=== PATIENT | female | born 1985 | race Caucasian/White ===

== ENCOUNTER → 2016-04-01 | Outpatient (CLI) | payer BC ==
[~2016-04-01] MED LIST: ALPR2TAB PO; AMOX1TAB43 PO; BUPR2MIS SL; CGN1 PO; CHOL20007 PO; FLUO20CA35 PO; HALDOL PO; HALO0.5T9 PO; KLN1 PO; LEVE500T13 PO; LYR100 PO; NALT50TA5 PO; PREG200C PO; PROM25TA9 PO; QUET1TAB10 PO; VITAMIN B SL; VITAMIN D PO
--- NOTE | 2016-04-01 14:13 | DIAGNOSTIC IMAGING REPORT ---
PA CHEST RADIOGRAPH AND UPRIGHT AND SUPINE AP RADIOGRAPHS OF THE ABDOMEN CLINICAL HISTORY: Constipation and diarrhea. COMPARISON STUDY: Chest CT January 27, 2014 and [facility] November 15, 2015. FINDINGS: Lung volumes are normal. Lungs are clear. There is no pneumothorax or pleural effusion. Cardiac size is normal. Mediastinal contours are normal. There is no free air. A left acetabular internal fixation is noted. A left pelvic calcification represents a phlebolith. The amount of stool within the colon is within normal limits. IMPRESSION: 1. No free air or evidence of bowel obstruction. 2. Unremarkable amount of stool within the colon and rectum. 3. No acute cardiopulmonary findings. Electronically signed by: Antwon Goodman M.D. 04/01/2016 2:12 PM Dictated Date/Time: 04/01/2016 2:11 PM
== END | disposition home or self-care (01) ==
LOC: C.RAD1850 13:39
PROVIDERS: ATTEND Internal Medicine
DX: K59.00 Constipation, unspecified (principal)

== ENCOUNTER → 2016-04-03 | Outpatient (CLI) | payer BC | END | disposition home or self-care (01) | LOC: C.LAB1850 13:45 | PROVIDERS: ATTEND Internal Medicine | DX: K59.00 Constipation, unspecified (principal) ==

== ENCOUNTER → 2016-04-22 | Day surgery (SDC) | payer BC ==
[2016-04-10 14:38] VITALS: Ht 160 cm; Wt 55.0 kg
[~2016-04-22] VITALS: Ht 160 cm; Wt 55.0 kg
[~2016-04-22] MED LIST changes: -BUPR2MIS SL; +FENTANYL CITRATE INJ 50 MCG/1 ML 2 ML VIAL ONE; -LEVE500T13 PO; +LIDOCAINE HCL 2% 2 ML VIAL (20MG/ML) ONE; +PROPOFOL IV EMULSION 10 MG/ML 20 ML VIAL IV ONE; +SODIUM CHLORIDE 0.9% 500ML 500 ML IV ONE
--- NOTE | 2016-04-22 15:05 | Endo History and Physical ---
History & Physical Date of Service: Apr 22, 2016. Chief Complaint: diarrhea Referring Physician: none History of Present Illness 30 yo CF who presents for colonoscopy secondary to diarrhea. Past Medical History Seizure Disorder Past Surgical History Hx Cardiac Surgery: No Hx Internal Defibrillator: No Hx Pacemaker: No Hx Abdominal Surgery: No Hx of Implantable Prosthesis: No Hx Post-Op Nausea and Vomiting: No Hx Cancer Surgery: No Hx Thoracic Surgery: No Hx Orthopedic: Yes (LEFT LEG/HIP SX (HARDWARE), LEFT ELBOW REPAIR (HARDWARE)) Hx Urinary Tract Surgery: No Family History Polyp Social History Smoking Status: Former Smoker Hx Substance Use: No Hx Alcohol Use: No Allergies Coded Allergies: No Known Allergies (Unverified , 04/10/16) Current Medications Reported Home Medications Medications Dose Route/Sig Max Daily Dose Days Date Category [Vitamin B] 1 Dose SL QAM 04/10/16 Reported [Vitamin D] 1 Tab PO QAM 04/10/16 Reported Xanax Xr (Alprazolam) 2 Mg Tab 1 Tab PO BID 04/10/16 Reported Prozac (Fluoxetine HCl) 20 Mg Cap 20 Mg PO BID 04/10/16 Reported Lyrica (Pregabalin) 200 Mg Cap 200 Mg PO TID 04/10/16 Reported Vital Signs Weight (Kilograms): 55 Height (Feet): 5 Height (Inches): 3 Date Time Temp Pulse Resp B/P Pulse Ox O2 Delivery O2 Flow Rate FiO2 04/22/16 14:52 36.6 57 20 115/71 98 Room Air Physical Exam General Appearance: WD/WN, no apparent distress Respiratory/Chest: Auscultation: breath sounds normal Cardiovascular: Heart Auscultation: RRR Abdomen: Bowel Sounds: normal Inspection & Palpation: soft, non-distended, no tenderness, guarding & rebound Assessment and Plan Assessment: 30 yo CF who presents for colonoscopy secondary to diarrhea. Plan: Proceed with colonoscopy.
--- NOTE | 2016-04-22 15:31 | Discharge Instructions ---
Endoscopy Patient Instructions Date / Procedure(s) Performed Apr 22, 2016. Colonoscopy Allergy Information Coded Allergies: No Known Allergies (Unverified , 04/10/16) Discharge Date / Findings Apr 22, 2016. Random colon biopsies Stool aspirate collected Internal hemorrhoids Medication Instructions OK to resume all medications today as prescribed. Reported Home Medications Medications Dose Route/Sig Max Daily Dose Days Date Category [Vitamin B] 1 Dose SL QAM 04/10/16 Reported [Vitamin D] 1 Tab PO QAM 04/10/16 Reported Xanax Xr (Alprazolam) 2 Mg Tab 1 Tab PO BID 04/10/16 Reported Prozac (Fluoxetine HCl) 20 Mg Cap 20 Mg PO BID 04/10/16 Reported Lyrica (Pregabalin) 200 Mg Cap 200 Mg PO TID 04/10/16 Reported Provider Instructions Activity Restrictions - No exercising or heavy lifting for 24 hours. - Do not drink alcohol the day of the procedure. - Do not drive a car or operate machinery until the day after the procedure. - Do not make any important decisions or sign important papers in 24 hours after the procedure. Following Day: - Return to full activity which may include returning to work/school. Diet Start your diet with liquids and light foods (jello, soup, juice, toast). Then eat your usual diet if not nauseated. Treatment For Common After Affects For mild abdominal pain, bloating, or excessive gas: - Rest - Eat lightly - Lie on right side Follow-Up Information Follow-up with none as scheduled Anesthesia Information What You Should Know You have had a procedure that required some medicine to reduce anxiety and discomfort. This treatment is called moderate sedation. After receiving the treatment, you may be sleepy, but you will be able to breathe on your own. The effects of the treatment may last for several hours. Follow these instructions along with Activity/Diet recommendations noted above: * Do NOT do anything where dizziness or clumsiness would be dangerous. * Rest quietly at home today, then you can be up and about tomorrow. * Have a responsible person stay with you the rest of today. * You may have had an I.V. today. If so, you may take the dressing off later today. Recommendations Call your doctor if: * Trouble breathing * Continuous vomiting for more than 24 hours * Temperature above 101 degrees * Severe abdominal pain or bloating * Pain not relieved by pain medicine ordered * There is increased drainage or redness from any incision * A large amount of rectal bleeding greater than 2-3 tablespoons. (If you had a polyp/s removed or have hemorrhoids, a small amount of blood - from the rectum is to be expected.) * You have any unanswered questions or concerns. IN THE EVENT OF A SERIOUS EMERGENCY, GO TO THE NEAREST EMERGENCY ROOM Your discharge instructions were prepared by provider Jame Ferguson. Patient Instructions Signature Page Tianna Andrews Patient (or Guardian) Signature/Date: I have read and understand the instructions given to me by my caregivers. Caregiver/RN/Doctor Signature/Date: The above-named patient and/or guardian has received patient instructions on this date. + Original Patient Signature Page (only) stays with chart. Please make copy for patient.
--- NOTE | 2016-04-22 15:36 | GI REPORT ---
Procedure Date: 04/22/2016 3:10 PM Procedure: Colonoscopy Indications: Chronic diarrhea Medicines: Monitored Anesthesia Care Complications: No immediate complications. Estimated Blood Loss: Estimated blood loss: none. Procedure: Pre-Anesthesia Assessment: - Prior to the procedure, a History and Physical was performed, and patient medications and allergies were reviewed. The patient's tolerance of previous anesthesia was also reviewed. The risks and benefits of the procedure and the sedation options and risks were discussed with the patient. All questions were answered, and informed consent was obtained. Prior Anticoagulants: The patient has taken no previous anticoagulant or antiplatelet agents. ASA Grade Assessment: II - A patient with mild systemic disease. After reviewing the risks and benefits, the patient was deemed in satisfactory condition to undergo the procedure. After I obtained informed consent, the scope was passed under direct vision. Throughout the procedure, the patient's blood pressure, pulse, and oxygen saturations were monitored continuously. The scope was introduced through the anus and advanced to the terminal ileum. The colonoscopy was performed without difficulty. The patient tolerated the procedure well. The quality of the bowel preparation was good. The terminal ileum, ileocecal valve, appendiceal orifice, and rectum were photographed. Findings: Non-bleeding internal hemorrhoids were found during retroflexion. The hemorrhoids were small. Several random biopsies were obtained with cold forceps for histology in the entire colon. Fluid aspiration for cytology was performed in the entire colon. Impression: - Non-bleeding internal hemorrhoids. - Several random biopsies were obtained in the entire colon. - Fluid aspiration was performed. Recommendation: - Resume previous diet. - Continue present medications. - Repeat colonoscopy for surveillance based on pathology results. - Return to primary care physician as previously scheduled. Jame Ferguson DO 04/22/2016 3:36:25 PM This report has been signed electronically. Note Initiated On: 04/22/2016 3:10 PM I attest to the content of the Intraoperative Record and orders documented therein, exceptions below
--- NOTE | 2016-04-22 15:42 | Anesthesiology Progress Note ---
Anesthesia Post Op Note Date & Time Apr 22, 2016 at 15:41 Vital Signs Pain Intensity: 0 Vital Signs Past 12 Hours Date Time Temp Pulse Resp B/P Pulse Ox O2 Delivery O2 Flow Rate FiO2 04/22/16 15:34 36.2 65 20 104/58 98 Room Air 04/22/16 14:52 36.6 57 20 115/71 98 Room Air Notes Mental Status: alert / awake / arousable, participated in evaluation Pt Amnestic to Procedure: Yes Nausea / Vomiting: adequately controlled Pain: adequately controlled Airway Patency, RR, SpO2: stable & adequate BP & HR: stable & adequate Hydration State: stable & adequate Anesthetic Complications: no major complications apparent
[2016-04-22 16:05] VITALS: BP 99/58; PULSE 56; O2SAT 100
== END | disposition home or self-care (01) ==
LOC: C.GI 14:17
PROVIDERS: ATTEND Internal Medicine
DX: R19.7 Diarrhea, unspecified (principal); K64.8 Other hemorrhoids; Z98.890 Other specified postprocedural states

== ENCOUNTER → 2016-05-09 | Outpatient (CLI) | payer BC ==
[~2016-05-09] MED LIST changes: -FENTANYL CITRATE INJ 50 MCG/1 ML 2 ML VIAL ONE; -LIDOCAINE HCL 2% 2 ML VIAL (20MG/ML) ONE; +OPTIRAY 320 IV PRN; -PROPOFOL IV EMULSION 10 MG/ML 20 ML VIAL IV ONE; -SODIUM CHLORIDE 0.9% 500ML 500 ML IV ONE
--- NOTE | 2016-05-09 15:32 | DIAGNOSTIC IMAGING REPORT ---
CT SCAN OF THE ABDOMEN AND PELVIS WITH IV CONTRAST CLINICAL HISTORY: Generalized abdominal pain. Diarrhea. COMPARISON STUDY: Abdominal radiographs dated 04/01/2016. TECHNIQUE: Following the IV administration of 92 cc of Optiray 320, CT scan of the abdomen and pelvis is performed from the lung bases to the proximal femora. Images are reviewed in the axial, sagittal, and coronal planes. IV contrast was administered without complication. Automated dose control exposure was utilized. CT DOSE: 286.47 mGycm FINDINGS: Lung bases: The heart is normal in size and without pericardial effusion. The lung bases are clear noting minimal dependent atelectasis. Liver: The contrast-enhanced liver is normal in size, contour, and attenuation. Focal fatty infiltration is seen adjacent to the falciform ligament. There is no intrahepatic biliary ductal dilatation. The hepatic veins and portal veins are patent. Gallbladder: Unremarkable. Spleen: Normal in size and attenuation. Pancreas: Unremarkable. Adrenal glands: Unremarkable. Kidneys: The contrast enhanced kidneys are normal in size and without hydronephrosis. The kidneys enhance symmetrically. Abdominal vasculature: The abdominal aorta is normal in course and caliber. Bowel: The small bowel and colon are normal in course and caliber. The sigmoid colon is decompressed. The appendix is well-visualized and normal. Peritoneum: There is no intraperitoneal free air or abdominal ascites. A naval piercing is noted. Lymphadenopathy: None. Pelvic viscera: The bladder, uterus, and adnexa are normal as visualized. There are small ovarian follicles. Trace free fluid is identified in the cul-de-sac. Skeletal structures: No lytic or blastic lesions are seen. Postoperative change is seen in the left posterior acetabulum. IMPRESSION: 1. There are no acute infectious or inflammatory findings in the abdomen or pelvis. 2. There is trace and likely physiologic free fluid in the cul-de-sac. Electronically signed by: Edin Thomas M.D. 05/09/2016 3:31 PM Dictated Date/Time: 05/09/2016 3:26 PM
== END | disposition home or self-care (01) ==
LOC: C.CTS 14:47
PROVIDERS: ATTEND Physician Assistant
DX: R19.7 Diarrhea, unspecified (principal); R10.31 Right lower quadrant pain

== ENCOUNTER 2016-06-26 15:53 | Observation (INO) | payer BC ==
[~2016-06-26] VITALS: Ht 157.5 cm; Wt 62.8 kg
[~2016-06-26 15:53] MED LIST changes: -AMOX1TAB43 PO; -CGN1 PO; -CHOL20007 PO; -HALDOL PO; -HALO0.5T9 PO; -KLN1 PO; -LYR100 PO; -NALT50TA5 PO; -OPTIRAY 320 IV PRN; -PREG200C PO; -PROM25TA9 PO; -QUET1TAB10 PO
[2016-06-26 17:45] VITALS: BP 121/76; PULSE 80; TEMP 36.7; O2SAT 98; Ht 157.5 cm; Wt 62.8 kg
[2016-06-26] MEDS ORDERED: POLYETHYLENE (MIRALAX) 17 GM PACK PO PRN (18:45)
[2016-06-26] MEDS ORDERED: ALUMINUM/MAGNESIUM/SIMETH (MAALOX MAX) 30 ML UDC PO PRN (18:45)
[2016-06-26] MEDS ORDERED: ONDANSETRON INJ 2 MG/ML 2 ML VIAL IV PRN (18:45)
[2016-06-26] MEDS ORDERED: MAGNESIUM HYDROXIDE SUSP 30 ML UDC PO PRN (18:45)
[2016-06-26] MEDS ORDERED: ACETAMINOPHEN 325 MG TAB PO PRN (18:45)
[2016-06-26 18:52] VITALS: O2SAT 98
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
[2016-06-26 19:32] VITALS: BP_SYST 125; BP_SYST 132; BP_DIAS 63; BP_DIAS 69; BP_DIAS 84; PULSE 79; PULSE 80; PULSE 82; TEMP 36.9; O2SAT 97
[2016-06-26 20:00] LABS: BLOOD UREA NITROGEN 8 mg/dl (7-18); BUN/CREATININE RATIO 20.1 (10-20); CARBON DIOXIDE 26 mmol/L (21-32); CHLORIDE 111 mmol/L (98-107); GLUCOSE 95 mg/dl (70-99); POTASSIUM 3.9 mmol/L (3.5-5.1); SODIUM 144 mmol/L (136-145)
[2016-06-26 20:15] LABS: THYROID STIMULATING HORMONE 0.268 uIu/ml (0.300-4.500)
[2016-06-26 20:19] LABS: HEMATOCRIT 38.8 % (37-47); MEAN CELL VOLUME 85.5 fL (80-100); MEAN CORPUSCULAR HEMOGLOBIN 27.3 pg (25-34); PLATELET COUNT 409 K/uL (130-400); RED BLOOD COUNT 4.54 M/uL (4.2-5.4); WHITE BLOOD COUNT 9.31 K/uL (4.8-10.8)
[2016-06-26] MEDS ORDERED: IV FLUIDS COMPLETED PRN (20:30)
[2016-06-26] MEDS: SODIUM CHLORIDE 0.9% 1000ML 1,000 ML IV SCH (21:00)
[2016-06-26] MEDS: QUETIAPINE FUMARATE 200 MG TAB PO SCH (21:01)
[2016-06-26] MEDS: PREGABALIN 100 MG CAP PO SCH (21:01)
[2016-06-26] MEDS: LEVETIRACETAM 500 MG TAB PO SCH (21:01)
[2016-06-26] MEDS: DIAZEPAM 5MG TAB PO SCH (21:01)
[2016-06-27] VITALS (10 sets, daily range): BP systolic 88–125; BP diastolic 53–91; PULSE 61–95; TEMP 36.4–37.2; O2SAT 96–99
[2016-06-27 05:38] LABS: HEMATOCRIT 35.6 % (37-47); MEAN CELL VOLUME 86.2 fL (80-100); MEAN CORPUSCULAR HEMOGLOBIN 27.4 pg (25-34); MEAN CORPUSCULAR HGB CONC 31.7 g/dl (32-36); MEAN PLATELET VOLUME 10.3 fL (7.4-10.4); PLATELET COUNT 359 K/uL (130-400); RED BLOOD COUNT 4.13 M/uL (4.2-5.4); WHITE BLOOD COUNT 9.23 K/uL (4.8-10.8)
[2016-06-27] MEDS: SODIUM CHLORIDE 0.9% 1000ML 1,000 ML IV SCH ×2 (05:54→16:11)
[2016-06-27 06:28] LABS: BLOOD UREA NITROGEN 7 mg/dl (7-18); BUN/CREATININE RATIO 18.6 (10-20); CALCIUM 8.4 mg/dl (8.5-10.1); CARBON DIOXIDE 29 mmol/L (21-32); CHLORIDE 113 mmol/L (98-107); CREATININE 0.39 mg/dl (0.60-1.20); GLUCOSE 86 mg/dl (70-99); POTASSIUM 4.2 mmol/L (3.5-5.1); SODIUM 145 mmol/L (136-145)
[2016-06-27] MEDS: DIAZEPAM 5MG TAB PO SCH ×2 (08:57→20:46)
[2016-06-27] MEDS: PREGABALIN 100 MG CAP PO SCH ×3 (08:57→20:46)
[2016-06-27] MEDS: LEVETIRACETAM 500 MG TAB PO SCH (08:57)
--- NOTE | 2016-06-27 09:00 | ECHOCARDIOGRAM REPORT ---
*NOTICE TO RECEIVING REPUBLICAN AGENCY This information is strictly Confidential and protected under [place] law. [place] law prohibits you from making any further disclosure of this information unless further disclosure is expressly permitted by the written consent of the person to whom it pertains or is authorized by law. A general authorization for the release of medical or other information is not sufficient for this purpose. Hospital accepts no responsibility if the information is made available to any other person, INCLUDING THE PATIENT. Interpretation Summary * Name: RADHA TOLENTINO Study Date: 06/27/2016 07:27 AM BP: 96/57 mmHg * Patient Location: .2E\S\E203\S\1 HR: 70 * : 1985 (M/d/yyyy) Gender: Female Height: 62 in * Age: 30 yrs Ethnicity: CA Weight: 134 lb * Ordering Physician: Anastasia Marrero * Referring Physician: Florian Martinez * Performed By: Katerin Ibarra RDCS * * Reason For Study: Syncope * BSA: 1.6 m2 * -- Conclusions -- * Left ventricular systolic function is normal. * Right ventricular systolic pressure is normal. Procedure Details * A complete two-dimensional transthoracic echocardiogram was performed (2D, M-mode, Doppler and color flow Doppler). Left Ventricle * The left ventricle is normal in size. * There is normal left ventricular wall thickness. * Ejection Fraction = 55-60%. * Left ventricular systolic function is normal. * Normal diastolic function Right Ventricle * The right ventricle is normal in size and function. Atria * The left atrial size is normal. * Right atrial size is normal. Mitral Valve * The mitral valve anatomy is normal. * There is no mitral regurgitation noted. Tricuspid Valve * The tricuspid valve is not well visualized, but is grossly normal. * There is trace tricuspid regurgitation. * Right ventricular systolic pressure is normal. Aortic Valve * Probably trileaflet * No hemodynamically significant valvular aortic stenosis. * There is no significant aortic regurgitation. Great Vessels * The aortic root is normal size. Pericardium/Pleural * There is no pericardial effusion. MMode 2D Measurements and Calculations IVSd 0.70 cm LVIDd 4.5 cm LVIDs 3.2 cm LVPWd 0.88 cm IVS/LVPW 0.80 FS 28.0 % EDV(Teich) 91.5 ml ESV(Teich) 41.7 ml EF(Teich) 54.4 % EDV(cubed) 89.9 ml ESV(cubed) 33.5 ml EF(cubed) 62.7 % LV mass(C)d 111.0 grams LV mass(C)dI 68.8 grams/m\S\2 CO(Teich) 3.4 l/min CI(Teich) 2.1 l/min/m\S\2 SV(Teich) 49.7 ml SI(Teich) 30.9 ml/m\S\2 CO(cubed) 3.9 l/min CI(cubed) 2.4 l/min/m\S\2 SV(cubed) 56.4 ml SI(cubed) 35.0 ml/m\S\2 Ao root diam 2.9 cm Ao root area 6.5 cm\S\2 ACS 1.7 cm LA dimension 3.1 cm asc Aorta Diam 2.5 cm LA/Ao 1.1 LVOT diam 1.9 cm LVOT area 2.7 cm\S\2 LVAd ap4 25.6 cm\S\2 LVLd ap4 8.0 cm EDV(MOD-sp4) 69.0 ml LVAs ap4 15.6 cm\S\2 LVLs ap4 6.6 cm ESV(MOD-sp4) 31.1 ml EF(MOD-sp4) 54.9 % LVAd ap2 24.9 cm\S\2 LVLd ap2 8.1 cm EDV(MOD-sp2) 64.5 ml LVAs ap2 15.0 cm\S\2 LVLs ap2 6.6 cm ESV(MOD-sp2) 28.5 ml EF(MOD-sp2) 55.8 % CO(MOD-sp4) 2.6 l/min CI(MOD-sp4) 1.6 l/min/m\S\2 SV(MOD-sp4) 37.9 ml SI(MOD-sp4) 23.5 ml/m\S\2 CO(MOD-sp2) 2.5 l/min CI(MOD-sp2) 1.5 l/min/m\S\2 SV(MOD-sp2) 36.0 ml SI(MOD-sp2) 22.3 ml/m\S\2 Doppler Measurements and Calculations MV E max sukhjinder 105.3 cm/sec MV A max sukhjinder 52.9 cm/sec MV E/A 2.0 MV dec time 0.14 sec Ao V2 max 148.4 cm/sec Ao max PG 8.8 mmHg Ao max PG (full) 4.4 mmHg CRISTY(V,A) 1.9 cm\S\2 CRISTY(V,D) 1.9 cm\S\2 LV V1 max PG 4.4 mmHg LV V1 max 104.8 cm/sec PA V2 max 83.4 cm/sec PA max PG 2.8 mmHg PA acc slope 482.2 cm/sec\S\2 PA acc time 0.15 sec TR max sukhjinder 187.0 cm/sec PA pr(Accel) 12.5 mmHg
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
--- NOTE | 2016-06-27 11:36 | EEG Procedure Note ---
EEG Procedure Note Date of Service June 27, 2016. Start / End Times Start Time: 8:24 AM End Time: 8:44 AM Referring Physician Brittney Cook History This is a 30-year-old female with a reported history of seizures and syncopal episodes. EEG for further evaluation of possible seizure etiology. Home Medication List Scheduled Alprazolam (Xanax Xr), 1 TAB PO BID Fluoxetine (Prozac), 20 MG PO BID Pregabalin (Lyrica), 200 MG PO TID [Vitamin B], 1 DOSE SL QAM [Vitamin D], 1 TAB PO QAM Inpatient Medication List Current Inpatient Medications Medications (Trade) Dose Ordered Sig/Bishop Route Start Time Stop Time Status Last Admin Dose Admin Acetaminophen (Tylenol Tab) 650 mg Q4H PRN PO 06/26/16 18:45 07/26/16 18:44 Al Hydrox/Mg Hydrox/Simethicone (Maalox Max Susp) 15 ml Q4H PRN PO 06/26/16 18:45 07/26/16 18:44 Magnesium Hydroxide (Milk Of Magnesia Susp) 30 ml Q12H PRN PO 06/26/16 18:45 07/26/16 18:44 Ondansetron HCl (Zofran Inj) 4 mg Q6H PRN IV 06/26/16 18:45 07/26/16 18:44 Polyethylene (Miralax Powder Packet) 17 gm DAILY PRN PO 06/26/16 18:45 07/26/16 18:44 Pregabalin (Lyrica Cap) 200 mg TID PO 06/26/16 21:00 07/26/16 20:59 06/27/16 08:57 200 MG Diazepam (Valium Tab) 10 mg BID PO 06/26/16 21:00 06/27/16 21:01 06/27/16 08:57 10 MG Diazepam (Valium Tab) 5 mg TID PO 06/28/16 09:00 06/29/16 23:00 Diazepam (Valium Tab) 5 mg BID PO 06/30/16 09:00 07/01/16 21:01 Diazepam (Valium Tab) 5 mg HS PO 07/02/16 21:00 08/01/16 20:59 Quetiapine Fumarate (seroQUEL TAB) 200 mg HS PO 06/26/16 21:00 07/26/16 20:59 06/26/16 21:01 200 MG Miscellaneous 1 ea 1 ea PRN PRN N/A 06/26/16 20:30 06/26/17 20:29 Sodium Chloride (Nss 1000ml) 1,000 ml @ 100 mls/hr Q10H IV 06/26/16 20:15 07/26/16 20:14 06/27/16 05:54 100 MLS/HR Description This is a 21 electrode EEG with a single channel dedicated to limited EKG. The electrodes were placed in accordance with the International 10-20 system. At the start of the recording the patient was in an awake state. Background was well organized and composed of symmetric mixed alpha and beta frequencies. There was a symmetric well-formed moderate amplitude 8-9 Hz posterior dominant rhythm that was reactive to eye opening and closure. Hyperventilation was not done. Intermittent photic stimulation at various frequencies produced no abnormalities. There was no state changes or sleep transients. Interpretation This is a normal awake only routine EEG. There was no electrographic seizures or epileptiform discharges. Clinical Correlation A normal EEG does not rule out epilepsy if there is a strong clinical suspicion.
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
[2016-06-27] MEDS: QUETIAPINE FUMARATE 200 MG TAB PO SCH (20:45)
[2016-06-28] MEDS: SODIUM CHLORIDE 0.9% 1000ML 1,000 ML IV SCH (02:02)
[2016-06-28 04:36] VITALS: BP 99/57; PULSE 68; TEMP 36.7; O2SAT 98
[2016-06-28 06:02] LABS: HEMATOCRIT 33.6 % (37-47); MEAN CELL VOLUME 85.5 fL (80-100); MEAN CORPUSCULAR HEMOGLOBIN 27.7 pg (25-34); MEAN CORPUSCULAR HGB CONC 32.4 g/dl (32-36); MEAN PLATELET VOLUME 9.9 fL (7.4-10.4); PLATELET COUNT 337 K/uL (130-400); RED BLOOD COUNT 3.93 M/uL (4.2-5.4); WHITE BLOOD COUNT 10.22 K/uL (4.8-10.8)
[2016-06-28 06:40] LABS: BLOOD UREA NITROGEN 9 mg/dl (7-18); BUN/CREATININE RATIO 20.2 (10-20); CALCIUM 8.3 mg/dl (8.5-10.1); CARBON DIOXIDE 27 mmol/L (21-32); CHLORIDE 112 mmol/L (98-107); CREATININE 0.43 mg/dl (0.60-1.20); GLUCOSE 87 mg/dl (70-99); POTASSIUM 3.9 mmol/L (3.5-5.1); SODIUM 144 mmol/L (136-145)
[2016-06-28] MEDS ORDERED: DIAZEPAM 5MG TAB PO SCH (09:00)
--- NOTE | 2016-06-28 09:22 | Discharge Instructions ---
Discharge Instructions Date of Service June 28, 2016. Admission Reason for Admission: Syncope Discharge Discharge Diagnosis / Problem: Syncope, most likely vasovagal Discharge Goals Goal(s): Improve function, Diagnostic testing (30 day event monitor) Activity Recommendations Activity Limitations: resume your previous activity Lifting Limitations: none Exercise/Sports Limitations: as tolerated May Resume Sexual Activity: when tolerated Shower/Bathe: no limitations Driving or Machine Use: no limitations . Instructions / Follow-Up Instructions / Follow-Up Medications: per inpatient drug rehab facility - Syncope: evaluated by cardiology and neurology CARDIOLOGY: she does have some episodes of atrial tachycardia followed by normal rates, several episodes on the monitor normal echocardiogram Dr. Thompson feels that the atrial tachycardia and occasional bradycardia not enough to cause syncope noted that she wore a Holter monitor 2-3 weeks ago ordered by her PCP, had similar rhythm but did NOT have syncope cardiology recommends a 30 day event monitor to evaluate rhythm if she has a syncopal episode feels that syncope is situational, likely vasovagal NEUROLOGY: normal EEG, no seizure activity Dr. Gaspar feels that these episodes are NOT suggestive of seizure activity, no need for anti-epileptics cleared to resume drug rehabilitation FOLLOW UP - return to [facility] for drug rehab Current Hospital Diet Patient's current hospital diet: Regular Diet Discharge Diet Recommended Diet: Regular Diet Pending Studies Studies pending at discharge: no Medical Emergencies . Who to Call and When: Medical Emergencies: If at any time you feel your situation is an emergency, please call 911 immediately. . Non-Emergent Contact Non-Emergency issues call your: Primary Care Provider Call Non-Emergent contact if: you have any medication questions . . "Provider Documentation" section prepared by Vipin Lyman. . VTE Core Measure Inpt VTE Proph given/why not?: Jessica Sanders, SCD's [place] Drug Monitoring Program Search Results: no issues identified
[2016-06-28] MEDS: PREGABALIN 100 MG CAP PO SCH (09:30)
[2016-06-28 10:42] VITALS: BP 99/57; PULSE 68; TEMP 36.7; O2SAT 98
--- NOTE | 2016-06-28 15:25 | Discharge Summary ---
Discharge Summary Date of Service June 28, 2016. Discharge Summary Admission Date: June 26, 2016 at 17:41 Discharge Date: June 28, 2016 Discharge Disposition: Rehab Principal Diagnosis: Syncope Problems/Secondary Diagnoses: Narcotic abuse Procedures: EEG - normal Echocardiogram - normal Consultations: Cardiology Neurology Medication Reconciliation Continued Medications: Fluoxetine (Prozac) 20 Mg Cap 20 MG PO BID, CAP Pregabalin (Lyrica) 200 Mg Cap 200 MG PO TID, CAP [Vitamin B] () 1 DOSE SL QAM [Vitamin D] () 1 TAB PO QAM Discontinued Medications: Alprazolam (Xanax Xr) 2 Mg Tab 1 TAB PO BID Discharge Exam Patient resting comfortably, no syncope while admitted. Ready to return to inpatient rehab. Review of Systems: Constitutional: No chills, No fatigue, No fever, No problem reported, No sweats, No weakness, No weight loss Eyes: No diplopia, No discharge, No eye pain, No problem reported, No redness, No worsening of vision ENT: No dental problems, No hearing loss, No nasal symptoms, No problem reported, No sore throat, No tinnitus, No trouble swallowing, No unusual epistaxis Respiratory: No cough, No dyspnea at rest, No dyspnea on exertion, No hemoptysis, No problem reported, No shortness of breath, No sputum, No wheezing Cardiovascular: No PND, No chest pain, No claudication, No edema, No orthopnea, No palpitations, No problem reported Abdomen: No GI bleeding, No constipation, No diarrhea, No nausea, No pain, No problem reported, No vomiting Musculoskeletal: No calf pain, No joint pain, No muscle pain, No problem reported, No swelling Genitourinary - Female: No dysuria, No urinary frequency, No urinary incontinence, No urinary urgency Neurologic: No balance problems, No memory loss, No numbness/tingling, No paralysis, No problem reported, No vertigo, No weakness Psychiatric: No anhedonism, No anxiety, No depression symptoms, No insomnia , No problem reported, No substance abuse Endocrine: No excessive thirst, No excessive urination, No fatigue, No problem reported Hematologic / Lymphatic: No abnormal bleeding/bruising, No clotting problems , No night sweats, No problem reported, No swollen lymph nodes Integumentary: No bleeding, No color change, No itch, No new/changing skin lesions, No problem reported, No rash Physical Exam: General Appearance: WD/WN, no apparent distress Eyes: normal inspection, EOMI, sclerae normal ENT: normal ENT inspection, hearing grossly normal, pharynx normal Neck: supple, no adenopathy, no JVD, trachea midline Respiratory/Chest: chest non-tender, lungs clear, normal breath sounds, no respiratory distress, no accessory muscle use Cardiovascular: regular rate, rhythm, no edema, no gallop, no JVD, no murmur , normal peripheral pulses Abdomen / GI: normal bowel sounds, non tender, soft, no organomegaly Extremities: normal inspection, no calf tenderness, normal capillary refill , no pedal edema, normal range of motion, pelvis stable Neurologic/Psychiatric: antiquer II-XII nml as tested, no motor/sensory deficits , alert, normal mood/affect, normal reflexes, oriented x 3 Skin: normal color, warm/dry, no rash Lymphatic: no adenopathy Hospital Course - Syncope: evaluated by cardiology and neurology CARDIOLOGY: she does have some episodes of atrial tachycardia followed by normal rates, several episodes on the monitor normal echocardiogram Dr. Thompson feels that the atrial tachycardia and occasional bradycardia not enough to cause syncope noted that she wore a Holter monitor 2-3 weeks ago ordered by her PCP, had similar rhythm but did NOT have syncope cardiology recommends a 30 day event monitor to evaluate rhythm if she has a syncopal episode feels that syncope is situational, likely vasovagal NEUROLOGY: normal EEG, no seizure activity Dr. aGspar feels that these episodes are NOT suggestive of seizure activity, no need for anti-epileptics Total Time Spent: Less than 30 minutes This includes examination of the patient, discharge planning, medication reconciliation, and communication with other providers. Discharge Instructions Please refer to the electronic Patient Visit Report (Discharge Instructions) for additional information. Follow-Up Rehab at [facility] after done with rehab Additional Copies To Ramiro Alvarado MD
[2016-06-30] MEDS ORDERED: DIAZEPAM 5MG TAB PO SCH (09:00)
[2016-07-02] MEDS ORDERED: DIAZEPAM 5MG TAB PO SCH (21:00)
[2016-08-02] MEDS ORDERED: PREG200C PO (14:37)
[2016-08-04] MEDS ORDERED: LYR100 PO (08:36)
[2016-08-04] MEDS ORDERED: AMOX1TAB43 PO (08:36)
[2016-08-04] MEDS ORDERED: KLN1 PO (08:36)
== END 2016-06-28 11:55 ==
LOC: INTOOBSV 17:41 → C.2E 17:41
PROVIDERS: ADMIT Internal Medicine; ATTEND Internal Medicine
DX: R55 Syncope and collapse (principal); F11.10 Opioid abuse, uncomplicated; F17.210 Nicotine dependence, cigarettes, uncomplicated; F41.9 Anxiety disorder, unspecified; F32.9 Major depressive disorder, single episode, unspecified; G89.29 Other chronic pain; G62.9 Polyneuropathy, unspecified; Z79.899 Other long term (current) drug therapy

== ENCOUNTER 2016-08-02 18:19 | Inpatient (IN) | payer BC ==
[~2016-08-02] VITALS: Ht 157.5 cm; Wt 64.3 kg
[~2016-08-02 18:19] MED LIST changes: -ALPR2TAB PO; +PREG200C PO
[2016-08-02] MEDS ORDERED: SODIUM CHLORIDE 0.9% 1000ML 1,000 ML IV STA (19:07)
[2016-08-02] MEDS ORDERED: NALT50TA5 PO (19:14)
[2016-08-02] MEDS ORDERED: HALDOL PO (19:14)
[2016-08-02] MEDS ORDERED: QUET1TAB10 PO (19:14)
[2016-08-02] MEDS ORDERED: PROM25TA9 PO (19:14)
[2016-08-02] MEDS ORDERED: BENZ-89 PO (19:14)
[2016-08-02] MEDS ORDERED: ALPR2TAB PO (19:14)
[2016-08-02] MEDS ORDERED: CHOL20007 PO (19:14)
[2016-08-02] MEDS ORDERED: HALO0.5T9 PO (19:14)
[2016-08-02 19:18] LABS: BASO % 0.5 %; BASO ABS # 0.09 K/uL (0-0.2); COMPLETE YES; EOS % 1.4 %; HEMATOCRIT 37.3 % (37-47); IG% 0.2 %; LYMPH ABS # 3.47 K/uL (1.2-3.4); MEAN CELL VOLUME 85.9 fL (80-100); MEAN CORPUSCULAR HEMOGLOBIN 27.9 pg (25-34); MEAN CORPUSCULAR HGB CONC 32.4 g/dl (32-36); MEAN PLATELET VOLUME 10.5 fL (7.4-10.4); MONO % 3.7 %; NEUT % 73.2 %; PLATELET COUNT 272 K/uL (130-400); RED BLOOD COUNT 4.34 M/uL (4.2-5.4)
[2016-08-02] MEDS ORDERED: NALOXONE HCL 0.4 MG/1 ML VIAL/CARP IV STA ×2 (19:19→19:41)
--- NOTE | 2016-08-02 19:21 | EMERGENCY ROOM VISIT NOTE ---
History Report prepared by Osbaldo: Adrienne Gleason Under the Supervision of: Dr. Denver Randolph M.D. First contact with patient: 19:06 Chief Complaint: OVERDOSE (INTENTIONAL) Stated Complaint: POSSIBLE OVERDOSE ON XANAX History of Present Illness The patient is a 30 year old female who presents to the Emergency Room for a constant symptoms of a possible overdose that occurred prior to arrival. Per the patient's mother, she believes the patient may have overdosed on her Xanax. The patient was suppose to be heading to [place] this evening to stay at a rehab treatment center for opioid addiction. The patient's mother helped her on the plane. Before the plane could take off, security took the patient off the plane due to her being lethargic, passing out and slurring words. The patient's says that as of last night 10 Xanax, 5 Seroquel, many Lyrica and 25 sleeping pills were missing from the patient's medication bottles. She has been exhibits these symptoms of lethargic and sleepiness since last night. The patient has been found by her [id number] to have pills in her hands that she is not suppose to be taking. The house has been searched and no pills have been found. 3 weeks ago the patient was at [facility] in [place] for rehab. Source of History: parent Onset: [employer]NAGER Position: other (global) Quality: other (possible overdose) Timing: constant Note: The patient has been experiencing lethargic behavior, slurred words, sleepiness , and passing out. Review of Systems See HPI for pertinent positives & negatives. A total of 10 systems reviewed and were otherwise negative. Past Medical & Surgical Medical Problems: (1) Overdose (2) Syncope and collapse Family History Syncopal Episodes Social History Smoking Status: Current Every Day Smoker Drug Use: other Marital Status: Housing Status: lives with family Allergies Coded Allergies: No Known Allergies (Unverified , 04/10/16) Physical Exam Vital Signs Date Time Temp Pulse Resp B/P (MAP) Pulse Ox O2 Delivery O2 Flow Rate FiO2 08/02/16 23:12 75 08/02/16 23:00 67 16 102/67 96 Room Air 08/02/16 21:46 66 16 91/57 98 Room Air 08/02/16 20:44 73 14 111/72 96 Room Air 08/02/16 20:16 71 14 92/60 98 Room Air 08/02/16 19:28 98 Room Air 08/02/16 19:04 73 08/02/16 18:54 100 Room Air 08/02/16 18:24 36.7 84 20 96/68 96 Room Air Physical Exam GENERAL: Patient is a somnolent, snoring female HEAD: Normocephalic atraumatic EYES: Ocular movements intact pupils equal and react to light OROPHARYNX mucous membranes are moist no exudates present no erythema or edema present NECK: Supple no nuchal rigidity CHEST: Good equal expansion LUNGS: Clear and equal to auscultation CARDIAC: Normal S1 and S2 ABDOMEN: Soft nontender no guarding BACK: No CVA tenderness EXTREMITIES: No pain upon palpation normal muscle strength in all groups no clubbing cyanosis or edema NEURO: Patient is following commands and answering questions appropriately. Alert and oriented x3 Cranial Nerves 2-12 grossly intact Medical Decision & Procedures ER Provider Diagnostic Interpretation: Radiology results as stated below per my review and radiologist interpretation: HEAD CT NONCONTRAST CT DOSE: 537.48 mGy.cm HISTORY: Altered mental status Pt AMS TECHNIQUE: Multiaxial CT images of the head were performed without the use of intravenous contrast. Comparison: 01/24/2014. Findings: Bulk of the sinuses are clear. There is noted within the soft tissues lateral to the right and to lesser extent left sphenoid air cells. This extends to the suboccipital region. Mastoid air cells are considered clear. The brain itself is unremarkable. No acute intracranial hemorrhage. No midline shift. The calvarium and skull base are intact. The ventricles and sulci are within normal limits. There is no mass, hematoma, midline shift, or acute infarct. Impression: 1. No acute intracranial abnormality. 2. Air within the soft tissues posterior to the orbits and maxillary sinuses. 3. Etiology of the air is uncertain. CT of the soft tissue neck is suggested as follow-up. Electronically signed by: Olaf Ashton M.D. 08/02/2016 8:49 PM Dictated Date/Time: 08/02/2016 8:46 PM CHEST ONE VIEW PORTABLE CLINICAL HISTORY: Pt c/o aspiration dyspnea COMPARISON STUDY: 04/01/2016 FINDINGS: Minimal bibasilar parenchymal infiltrative change. Mid and upper lungs are considered clear. Diaphragms smooth. IMPRESSION: Minimal bibasilar parenchymal infiltrative change. Electronically signed by: Olaf Ashton M.D. 08/02/2016 8:46 PM Dictated Date/Time: 08/02/2016 8:45 PM Laboratory Results Test 08/02/16 18:50 08/02/16 20:06 08/02/16 20:21 Immature Granulocyte % (Auto) 0.2 % White Blood Count 16.50 K/uL (4.8-10.8) Red Blood Count 4.34 M/uL (4.2-5.4) Hemoglobin 12.1 g/dL (12.0-16.0) Hematocrit 37.3 % (37-47) Mean Corpuscular Volume 85.9 fL (80-100) Mean Corpuscular Hemoglobin 27.9 pg (25-34) Mean Corpuscular Hemoglobin Concent 32.4 g/dl (32-36) Platelet Count 272 K/uL (130-400) Mean Platelet Volume 10.5 fL (7.4-10.4) Neutrophils (%) (Auto) 73.2 % Lymphocytes (%) (Auto) 21.0 % Monocytes (%) (Auto) 3.7 % Eosinophils (%) (Auto) 1.4 % Basophils (%) (Auto) 0.5 % Neutrophils # (Auto) 12.07 K/uL (1.4-6.5) Lymphocytes # (Auto) 3.47 K/uL (1.2-3.4) Monocytes # (Auto) 0.61 K/uL (0.11-0.59) Eosinophils # (Auto) 0.23 K/uL (0-0.5) Basophils # (Auto) 0.09 K/uL (0-0.2) Immature Granulocyte # (Auto) 0.03 K/uL (0.00-0.02) Prothrombin Time 11.1 SECONDS (9.0-12.0) Prothromb Time International Ratio 1.0 (0.9-1.1) Activated Partial Thromboplast Time 29.4 SECONDS (21.0-31.0) Partial Thromboplastin Ratio 1.1 Lipase 92 U/L (73-393) Salicylates Level 2.3 mg/dl (2.8-20) Acetaminophen Level < 2 ug/ml (10-30) Ethyl Alcohol mg/dL < 3.0 mg/dl (0-3) Bedside Glucose 99 mg/dl (70-90) Direct Bilirubin < 0.1 mg/dl (0-0.2) Total Creatine Kinase 94 U/L (26-192) Labs reviewed by ED physician. Medications Administered Medications (Trade) Dose Ordered Sig/Bishop Route Start Time Stop Time Status Last Admin Dose Admin Sodium Chloride 1,000 ml @ 999 mls/hr Q1H1M STAT IV 08/02/16 19:07 08/02/16 20:07 DC 08/02/16 19:27 999 MLS/HR Naloxone HCl (Narcan Inj) 0.2 mg NOW STAT IV 08/02/16 19:19 08/02/16 19:20 DC 08/02/16 19:24 0.2 MG Naloxone HCl (Narcan Inj) 0.2 mg NOW STAT IV 08/02/16 19:41 08/02/16 19:43 DC 08/02/16 19:41 0.2 MG Levofloxacin (Levaquin / D5W) 750 mg NOW STAT IV 08/02/16 20:57 08/03/16 18:11 DC 08/02/16 22:22 750 MG Piperacillin Sod/ Tazobactam Sod (Zosyn Iv) 4.5 gm NOW STAT IV 08/02/16 20:57 08/02/16 20:59 DC 08/02/16 21:44 4.5 GM ECG Indication: other (possible overdose) Rate (beats per minute): 70 Rhythm: sinus bradycardia Findings: no acute ischemic change, no ectopy ED Course 1904: Past medical records reviewed. The patient was evaluated in room c4. A complete history and physical examination was performed. 1906: Sodium Chloride 1,000 ml @ 999 mls/hr IV. 1918: Narcan inj 0.2 mg IV. 1940: Narcan Inj 0.2 mg IV. 2012: I spoke to Poison Control about the patient and discussed the pills she took. They said to be aware for seizures but the Xanax should off set, protective the airway and check Tylenol, Aspirin and alcohol levels. 2056: Zosyn Iv 4.5 gm IV, Levaquin / D5W 750 mg IV. Medical Decision Differential diagnosis include overdose. Medication Reconciliation: I attest that I have personally reviewed the patient' s current medication list This is a 30-year-old female who presents to the emergency department after taking an unknown number of her medications at home. The patient was boarding a plane and was kicked off by security because she was so obtunded and incontinent. Upon arrival to the emergency department the patient has snoring respirations. She was sent for CAT scan of the head as well as a chest x-ray. I do believe that the patient may have aspirated she has an elevation in her white blood count cell count. She was sent for CAT scan of the head which was concerning for air. For this reason she was sent for soft tissue scan of the neck. I do believe that the air seen on soft tissue of the neck on physical exam is actually food in the patient's pharynx. This was manually disimpacted by myself. I did discuss the case with the hospitalist service as well as poison control. Consults Time Called: 2005 Consulting Physician: Poison Control Returned Call: 2012 I spoke to Poison Control about the patient and discussed the pills she took. They said to be aware for seizures but the Xanax should off set, protective the airway and check Tylenol, Aspirin and alcohol levels. Impression Primary Impression: Overdose Additional Impression: Pneumonia Scribe Attestation The scribe's documentation has been prepared under my direction and personally reviewed by me in its entirety. I confirm that the note above accurately reflects all work, treatment, procedures, and medical decision making performed by me. Departure Information Dispostion Home / Self-Care Referrals Ramiro Alvarado MD (PCP) Patient Instructions [facility] Problem Qualifiers Primary Impression: Overdose Encounter type: initial encounter Injury intent: undetermined intent Qualified Codes: T50.904A - Poisoning by unspecified drugs, medicaments and biological substances, undetermined, initial encounter Additional Impression: Pneumonia Pneumonia type: due to unspecified organism Laterality: unspecified laterality Lung location: unspecified part of lung Qualified Codes: J18.9 - Pneumonia, unspecified organism
[2016-08-02 19:26] LABS: PARTIAL THROMBOPLASTIN RATIO 1.1; PROTHROMBIN TIME (PATIENT) 11.1 SECONDS (9.0-12.0)
[2016-08-02 19:59] LABS: ALKALINE PHOSPHATASE 55 U/L (45-117); ALT/SGPT 23 U/L (12-78); BLOOD UREA NITROGEN 12 mg/dl (7-18); BUN/CREATININE RATIO 16.2 (10-20); CARBON DIOXIDE 26 mmol/L (21-32); CHLORIDE 105 mmol/L (98-107); CREATININE 0.76 mg/dl (0.60-1.20); GLUCOSE 69 mg/dl (70-99); SODIUM 140 mmol/L (136-145)
[2016-08-02 20:10] LABS: ACETAMINOPHEN < 2 ug/ml (10-30)
--- NOTE | 2016-08-02 20:47 | DIAGNOSTIC IMAGING REPORT ---
CHEST ONE VIEW PORTABLE CLINICAL HISTORY: Pt c/o aspiration dyspnea COMPARISON STUDY: 04/01/2016 FINDINGS: Minimal bibasilar parenchymal infiltrative change. Mid and upper lungs are considered clear. Diaphragms smooth. IMPRESSION: Minimal bibasilar parenchymal infiltrative change. Electronically signed by: Olaf Ashton M.D. 08/02/2016 8:46 PM Dictated Date/Time: 08/02/2016 8:45 PM
--- NOTE | 2016-08-02 20:50 | DIAGNOSTIC IMAGING REPORT ---
HEAD CT NONCONTRAST CT DOSE: 537.48 mGy.cm HISTORY: Altered mental status Pt AMS TECHNIQUE: Multiaxial CT images of the head were performed without the use of intravenous contrast. Comparison: 01/24/2014. Findings: Bulk of the sinuses are clear. There is noted within the soft tissues lateral to the right and to lesser extent left sphenoid air cells. This extends to the suboccipital region. Mastoid air cells are considered clear. The brain itself is unremarkable. No acute intracranial hemorrhage. No midline shift. The calvarium and skull base are intact. The ventricles and sulci are within normal limits. There is no mass, hematoma, midline shift, or acute infarct. Impression: 1. No acute intracranial abnormality. 2. Air within the soft tissues posterior to the orbits and maxillary sinuses. 3. Etiology of the air is uncertain. CT of the soft tissue neck is suggested as follow-up. Electronically signed by: Olaf Ashton M.D. 08/02/2016 8:49 PM Dictated Date/Time: 08/02/2016 8:46 PM
[2016-08-02] MEDS ORDERED: LEVAQUIN 750MG / 150ML D5W IV STA (20:57)
[2016-08-02] MEDS ORDERED: PIPERACILLIN/TAZOBACTAM 4.5 GM/100ML D5W IV STA (20:57)
[2016-08-02 21:09] LABS: POTASSIUM 3.5 mmol/L (3.5-5.1)
[2016-08-02] MEDS ORDERED: OPTIRAY 320 IV PRN (21:15)
[2016-08-02 21:18] LABS: AST/SGOT 17 U/L (15-37)
--- NOTE | 2016-08-02 21:59 | DIAGNOSTIC IMAGING REPORT ---
CT soft tissue neck SOFT TISSUE NECK WITH CLINICAL HISTORY: Pt air on CT head abnormal CT brain. Soft tissue air. TECHNIQUE: Transaxial acquisition with multi axial reformatted images COMPARISON STUDY: None FINDINGS: Study confirms the presence of scattered air bubbles of air within the soft tissues of the neck. This includes the subcutaneous fat anterior to the anterior wall left maxillary sinus. Scattered small foci of air pockets are noted within the posterior oral and hypopharyngeal region as well as the masseter musculature regions. All major sinuses are considered clear. Scattered areas of air are identified in the hypopharyngeal soft tissues and 2 masses extent scattered throughout the lower esophageal region. No significant free air within the superior mediastinal region is felt to be present. There is no evidence for airway compromise. The salivary glands appear unremarkable. Glottic and subglottic regions are unremarkable. Thyroid is symmetric bilaterally. Pulmonary apices are clear with no evidence for pneumothorax. Sternocleidomastoid musculature is symmetric. No evidence for abscess or collection. IMPRESSION: 1. Punctate foci of air within the soft tissues throughout the soft tissue maxillofacial and soft tissue cervical neck regions. . 2. No evidence for abscess or collection 3. Diagnostic considerations are nonspecific although a potential origin from the posterior oral or hypopharynx must be considered. 4. This potentially would include a soft tissue laceration or other process. 5. The distribution of air pockets does not support anyone potential location as the origin. Electronically signed by: Olaf Ashton M.D. 08/02/2016 9:58 PM Dictated Date/Time: 08/02/2016 9:51 PM
[2016-08-03] VITALS (8 sets, daily range): BP systolic 94–110; BP diastolic 60–75; PULSE 57–71; TEMP 36.5–36.7; O2SAT 96–100; Ht 157.5 cm; Wt 64.3 kg
[2016-08-03] MEDS ORDERED: IV FLUIDS COMPLETED PRN ×2 (00:30)
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
[2016-08-03] MEDS ORDERED: PROMETHAZINE HCL 25 MG TAB PO PRN (01:00)
[2016-08-03] MEDS: SODIUM CHLORIDE 0.9% 1000ML 1,000 ML IV SCH ×3 (01:00→17:05)
[2016-08-03 07:17] LABS: HEMATOCRIT 34.3 % (37-47); MEAN CELL VOLUME 86.2 fL (80-100); MEAN CORPUSCULAR HEMOGLOBIN 27.9 pg (25-34); MEAN CORPUSCULAR HGB CONC 32.4 g/dl (32-36); MEAN PLATELET VOLUME 9.7 fL (7.4-10.4); PLATELET COUNT 226 K/uL (130-400); RED BLOOD COUNT 3.98 M/uL (4.2-5.4); WHITE BLOOD COUNT 10.12 K/uL (4.8-10.8)
[2016-08-03 08:12] LABS: ALB/GLOB RATIO 0.9 (0.9-2); BUN/CREATININE RATIO 16.2 (10-20); CALCIUM 7.5 mg/dl (8.5-10.1); CREATININE 0.66 mg/dl (0.60-1.20); POTASSIUM 3.9 mmol/L (3.5-5.1)
[2016-08-03] MEDS: CHOLECALCIFEROL 1000 INTER.UNIT TAB PO SCH (08:27)
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
--- NOTE | 2016-08-03 09:15 | Progress Note ---
Medicine Progress Note Date & Time of Visit: Aug 03, 2016 at 08:43. Subjective seen with patient's RN at the bedside throughout encounter sitting up in bed, alert, oriented x 3, not in distress, seems to be in good spirits, joking denies headache, dizziness, nausea, abdominal pain, chest pain, dyspnea, palpitations no pain on the face, neck, chest; denies dysphagia, odynophagia no recent trauma to the head and neck per patient admits that after she and her went to the [facility], as her was filing for a divorce, she took Xanax ~10 pills, Haldol ~ 5 pills and Lyrica - not sure of the amount- as she was feeling overwhelmed then went to the airport for her flight to [place] to go rehab patient expresses regret that she did this and is very eager to catch her 3pm flight today to [place] and begin rehab she states she really wants to go to this Rehab to get better and to save her marriage denies other symptoms Objective Last 8 Hrs Date Time Temp Pulse Resp B/P (MAP) Pulse Ox O2 Delivery O2 Flow Rate FiO2 08/03/16 07:57 36.7 68 18 104/74 (84) 98 Room Air 08/03/16 04:00 36.5 68 20 94/60 (71) 96 Room Air 08/03/16 04:00 Room Air Physical Exam: General- oriented x 3, not in distress, speaks in sentences with no effort Head- atraumatic Eyes- PERRL, EOMI, anicteric ENT- oropharynx clear, no erythema/tonsillar enlargement/exudates; no signs of wounds/bleeding Neck- supple, no JVD, no adenopathy, no thyromegaly; no tenderness; no crepitus Lungs- clear breath sounds bilaterally, no rales/wheezes Heart- regular rhythm; no murmur, normal rate Abdomen- normal bowel sounds, non distended, soft, nontender Extremities- no pretibial edema, no calf tenderness Neuro- alert, oriented x 3; PERRL, EOMI; no facial palsy; no dysarthria; motor 5 /5 bilaterally; no other gross focal motor/sensory deficits Skin- warm & dry Laboratory Results: Last 24 Hours Test 08/02/16 18:50 6/23/17 20:06 08/02/16 20:21 08/03/16 07:05 White Blood Count 16.50 K/uL 10.12 K/uL Red Blood Count 4.34 M/uL 3.98 M/uL Hemoglobin 12.1 g/dL 11.1 g/dL Hematocrit 37.3 % 34.3 % Mean Corpuscular Volume 85.9 fL 86.2 fL Mean Corpuscular Hemoglobin 27.9 pg 27.9 pg Mean Corpuscular Hemoglobin Concent 32.4 g/dl 32.4 g/dl Platelet Count 272 K/uL 226 K/uL Mean Platelet Volume 10.5 fL 9.7 fL Neutrophils (%) (Auto) 73.2 % Lymphocytes (%) (Auto) 21.0 % Monocytes (%) (Auto) 3.7 % Eosinophils (%) (Auto) 1.4 % Basophils (%) (Auto) 0.5 % Neutrophils # (Auto) 12.07 K/uL Lymphocytes # (Auto) 3.47 K/uL Monocytes # (Auto) 0.61 K/uL Eosinophils # (Auto) 0.23 K/uL Basophils # (Auto) 0.09 K/uL RDW Standard Deviation 53.4 fL 53.5 fL RDW Coefficient of Variation 17.0 % 16.8 % Immature Granulocyte % (Auto) 0.2 % Immature Granulocyte # (Auto) 0.03 K/uL Prothrombin Time 11.1 SECONDS Prothromb Time International Ratio 1.0 Activated Partial Thromboplast Time 29.4 SECONDS Partial Thromboplastin Ratio 1.1 Sodium Level 140 mmol/L 143 mmol/L Potassium Level mmol/L 3.5 mmol/L 3.9 mmol/L Chloride Level 105 mmol/L 111 mmol/L Carbon Dioxide Level 26 mmol/L 25 mmol/L Anion Gap 9.0 mmol/L 7.0 mmol/L Blood Urea Nitrogen 12 mg/dl 11 mg/dl Creatinine 0.76 mg/dl 0.66 mg/dl Estimated GFR () 122.0 137.4 Estimated GFR (Non- 105.3 118.5 BUN/Creatinine Ratio 16.2 16.2 Random Glucose 69 mg/dl 87 mg/dl Calcium Level 9.0 mg/dl 7.5 mg/dl Total Bilirubin 0.3 mg/dl 0.2 mg/dl Direct Bilirubin mg/dl < 0.1 mg/dl Aspartate Amino Transf (AST/SGOT) U/L 17 U/L 12 U/L Alanine Aminotransferase (ALT/SGPT) 23 U/L 17 U/L Alkaline Phosphatase 55 U/L 46 U/L Total Creatine Kinase U/L 94 U/L Total Protein 7.5 gm/dl 6.0 gm/dl Albumin 3.9 gm/dl 2.9 gm/dl Lipase 92 U/L Salicylates Level 2.3 mg/dl Acetaminophen Level < 2 ug/ml Ethyl Alcohol mg/dL < 3.0 mg/dl Bedside Glucose 99 mg/dl Est Creatinine Clear Calc Drug Dose 109.8 ml/min Globulin 3.1 gm/dl Albumin/Globulin Ratio 0.9 Procalcitonin < 0.05 ng/ml Date/Time Source Procedure Growth Status 08/02/16 21:26 Blood Blood Culture Pending Received 08/02/16 21:20 Blood Blood Culture Pending Received Assessment & Plan 30 female with history of Anxiety/Depression, Opioid Dependence, Chronic Pain presenting with unresponsiveness. EPISODE OF UNRESPONSIVENESS, ALTERED MENTAL STATUS - likely from overdose of Xanax, Lyrica, Seroquel - CT head: 1. No acute intracranial abnormality. 2. Air within the soft tissues posterior to the orbits and maxillary sinuses. 3. Etiology of the air is uncertain. CT of the soft tissue neck is suggested as - electrolytes: ok - ekg: non specific t wave depression lead 3 QT 401 - poison control contacted- continue supportive care OVERDOSE ANXIETY/DEPRESSION - evaluated by Psych - no indication of inpatient mental health treatment at this time - patient competent to make medical decisions, including signing out AMA AIR POCKETS IN THE MAXILLARY SINUS, ORBIT, NECK - CT head and Neck reviewed - consulted and discussed with ENT Service Dr. Arriola BIBASILAR PARENCHYMAL INFILTRATIVE CHANGE CXR showed Minimal bibasilar parenchymal infiltrative change Received Zosyn an Levaquin in the ER denies cough, shortness of breath no fever/chills WBC normal this morning -- continue Levaquin possible d/c on Augmentin PO EKG CHANGES - ekg: non specific t wave depression lead 3 QT 401 - repeat EKG this AM ANXIETY/DEPRESSION hold all Psych meds per Psych [facility] OPIOID ABUSE scheduled to go to [place] for Rehab DVT PX SCDs/ ambulate CODE STATUS FULL CODE Level of Care Telemetry VTE Prophylaxis VTE Risk Assessment Done? Y/N: Yes Risk Level: Low Given or contraindicated: SCD's Current Inpatient Medications: Current Inpatient Medications Medications (Trade) Dose Ordered Sig/Bishop Route Start Time Stop Time Status Last Admin Dose Admin Ioversol (Optiray 320) 111 ml UD PRN IV 08/02/16 21:15 08/06/16 21:14 Miscellaneous (Iv Fluids Completed) 1 ea PRN PRN N/A 08/03/16 00:30 08/03/17 00:29 Sodium Chloride 1,000 ml @ 125 mls/hr Q8H IV 08/03/16 00:45 09/02/16 00:44 08/03/16 01:00 125 MLS/HR Levofloxacin 750 mg/Prmx 150 ml @ 100 mls/hr Q24H IV 08/03/16 22:00 08/09/16 21:59 Promethazine HCl (Phenergan Tab) 25 mg Q6H PRN PO 08/03/16 01:00 09/02/16 00:59 Cholecalciferol (Vitamin D Tab) 2,000 inter.unit DAILY PO 08/03/16 09:00 09/02/16 08:59 08/03/16 08:27 2,000 INTER.UNIT
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
--- NOTE | 2016-08-03 10:18 | Discharge Instructions ---
Discharge Instructions Date of Service Aug 03, 2016. Admission Reason for Admission: Overdose Discharge Discharge Diagnosis / Problem: Medication Overdose Discharge Goals Goal(s): Diagnostic testing, Therapeutic intervention Activity Recommendations Activity Limitations: as noted below (no heavy exertion until seen by Medical Care Provider) Lifting Limitations: until after follow-up appointment Exercise/Sports Limitations: until after follow-up appointment Driving or Machine Use: No driving unless cleared by Medical Care Provider . Instructions / Follow-Up Instructions / Follow-Up ENSURE ADEQUATE DAILY FLUID INTAKE. MONITOR FOR PAIN IN THE THROAT, DIFFICULTY SWALLOWING, PAIN WITH SWALLOWING, SHORTNESS OF BREATH, WEAKNESS, DIZZINESS, HEADACHE, NAUSEA, ABDOMINAL PAIN, CONFUSION, DROWSINESS. IF ABOVE SYMPTOMS PRESENT OR IF YOU ARE NOT FEELING, SEEK MEDICAL CARE IMMEDIATELY. Current Hospital Diet Patient's current hospital diet: Regular Diet Discharge Diet Recommended Diet: Regular Diet Pending Studies Studies pending at discharge: yes List of pending studies: REPEAT BLOOD WORK Medical Emergencies . Who to Call and When: Medical Emergencies: If at any time you feel your situation is an emergency, please call 911 immediately. . Non-Emergent Contact Non-Emergency issues call your: Primary Care Provider Call Non-Emergent contact if: you have a fever, you have any medication questions . . "Provider Documentation" section prepared by Huy Bailon. . VTE Core Measure Inpt VTE Proph given/why not?: SCD's
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
[2016-08-03] MEDS ORDERED: CLONAZEPAM 1 MG TAB PO ONE (14:45)
[2016-08-03 14:56] LABS: BENZODIAZEPINE, URINE POS (NEG); COCAINE,URINE NEG (NEG); PHENCYCLIDINE, URINE NEG (NEG)
[2016-08-03] MEDS ORDERED: AMOXICILLIN/CLAVULANATE TAB 875 MG TAB PO ONE (18:11)
[2016-08-03] MEDS: CLONAZEPAM 1 MG TAB PO SCH (21:06)
[2016-08-03] MEDS: PREGABALIN 100 MG CAP PO SCH (21:06)
[2016-08-03] MEDS ORDERED: LEVOFLOXACIN / D5W 750 MG in PREMIXED IN D5W 150 ML IV SCH (22:00)
[2016-08-04 00:06] VITALS: BP 98/64; PULSE 65; TEMP 36.7; O2SAT 98
[2016-08-04 04:00] VITALS: BP 112/76; PULSE 62; TEMP 36.6; O2SAT 98
[2016-08-04] MEDS: SODIUM CHLORIDE 0.9% 1000ML 1,000 ML IV SCH (04:52)
[2016-08-04 07:26] LABS: BASO % 0.6 %; BASO ABS # 0.04 K/uL (0-0.2); COMPLETE YES; EOS % 2.2 %; HEMATOCRIT 32.2 % (37-47); IG% 0.3 %; LYMPH % 28.9 %; LYMPH ABS # 2.08 K/uL (1.2-3.4); MEAN CELL VOLUME 86.3 fL (80-100); MEAN CORPUSCULAR HEMOGLOBIN 28.2 pg (25-34); MEAN CORPUSCULAR HGB CONC 32.6 g/dl (32-36); MEAN PLATELET VOLUME 10.1 fL (7.4-10.4); MONO % 5.4 %; NEUT % 62.6 %; PLATELET COUNT 212 K/uL (130-400); RED BLOOD COUNT 3.73 M/uL (4.2-5.4)
[2016-08-04 07:53] VITALS: BP 118/74; PULSE 70; TEMP 36.8; O2SAT 98
--- NOTE | 2016-08-04 07:53 | Progress Note ---
Progress Note Date of Service Aug 04, 2016. Progress Note yesterday: discussed case with Dr. Arriola, observe patient for now, no further intervention as patient is asymptomatic patient verbalized she wanted to sign out AMA per RN discussed with patient and , explained leaving AMA, they were accepting of risks involved offered if they wanted me to get in touch, give medical information, and coordinate medical care with Rehab in [facility], they requested for me to do so and gave me contact info of Rishabh called Rishabh and discussed patient's case, he said he will speak with the patient and her , also requested for me to speak with their physician who will take care of patient patient and later on informed me that the Rehab will not accept her if she is signing out AMA, patient decides to stay for continuing medical care later on, patient reported to RN that she takes Xanax 4mg daily and was inquiring if she can have Xanax taper discussed with Psych [facility], Ms Howe recommends holding Xanax for that day later on, patient reports to RN that she was having skin crawling sensation discussed with Psych [facility], they recommend Klonopin BID re-evaluated patient in the evening around 6pm, DIETITIAN CONSULTANT present during entire encounter sitting up in bedside chair, comfortable, in better spirits makes comments like "i know how to disconnect this IV fluids" denies symptoms states she is worried about not taking her Lyrica, and not taking it will make her restless and not sleep agreeable and comfortable with plan of care, continued medical management in the hospital discussed again with Psych liaison, Gregorio,- they recommend to resume patient's Lyrica 200mg TID as she takes at home order placed Huy Bailon MD
[2016-08-04 07:59] LABS: ALT/SGPT 14 U/L (12-78); BLOOD UREA NITROGEN 7 mg/dl (7-18); BUN/CREATININE RATIO 12.9 (10-20); CALCIUM 7.5 mg/dl (8.5-10.1); CARBON DIOXIDE 23 mmol/L (21-32); CHLORIDE 112 mmol/L (98-107); CREATININE 0.56 mg/dl (0.60-1.20); GLUCOSE 100 mg/dl (70-99); MAGNESIUM 2.1 mg/dl (1.8-2.4); POTASSIUM 4.3 mmol/L (3.5-5.1); SODIUM 142 mmol/L (136-145)
[2016-08-04] MEDS ORDERED: AMOXICILLIN/CLAVULANATE TAB 875 MG TAB PO SCH (08:00)
[2016-08-04 08:02] LABS: ALKALINE PHOSPHATASE 44 U/L (45-117); AST/SGOT 12 U/L (15-37)
[2016-08-04] MEDS: CLONAZEPAM 1 MG TAB PO SCH (08:21)
[2016-08-04] MEDS: CHOLECALCIFEROL 1000 INTER.UNIT TAB PO SCH (08:21)
[2016-08-04] MEDS: PREGABALIN 100 MG CAP PO SCH (08:22)
--- NOTE | 2016-08-04 08:34 | Progress Note ---
Medicine Progress Note Date & Time of Visit: Aug 04, 2016 at 08:23. Subjective patient seen with HODAN Goodwin at bedside throughout encounter resting in bed, talking on the phone, comfortable, alert, in good spirits states she fine overall no headache, dizziness ,nausea, chest pain, dyspnea, palpitations no dysphagia, odynophagia denies abdominal pain no other symptoms states she is ready for discharge today to take her to the airport en route to [place] for Rehab treatment Objective Last 8 Hrs Date Time Temp Pulse Resp B/P (MAP) Pulse Ox O2 Delivery O2 Flow Rate FiO2 08/04/16 07:53 36.8 70 18 118/74 (89) 98 Room Air 08/04/16 04:00 36.6 62 20 112/76 (88) 98 Room Air 08/04/16 04:00 Room Air Physical Exam: General- oriented x 3, not in distress, speaks in sentences with no effort Eyes- EOMI, anicteric ENT- oropharynx clear Neck- no JVD Lungs- clear breath sounds, no rales/wheezes, crepitus Heart- regular rhythm; no murmur, normal rate Abdomen- normal bowel sounds, non distended, soft, nontender Extremities- no pretibial edema, no calf tenderness Neuro- alert, oriented x 3; no gross focal deficit Skin- warm & dry Laboratory Results: Last 24 Hours Test 08/03/16 14:00 08/04/16 06:46 Urine Opiates Screen POS Urine Methadone, Qualitative NEG Urine Barbiturates NEG Urine Phencyclidine (PCP) Level NEG Ur Amphetamine/Methamphetamine NEG MDMA (Ecstasy) Screen NEG Urine Benzodiazepines Screen POS Urine Cocaine Metabolite NEG Urine Marijuana (THC) NEG White Blood Count 7.20 K/uL Red Blood Count 3.73 M/uL Hemoglobin 10.5 g/dL Hematocrit 32.2 % Mean Corpuscular Volume 86.3 fL Mean Corpuscular Hemoglobin 28.2 pg Mean Corpuscular Hemoglobin Concent 32.6 g/dl Platelet Count 212 K/uL Mean Platelet Volume 10.1 fL Neutrophils (%) (Auto) 62.6 % Lymphocytes (%) (Auto) 28.9 % Monocytes (%) (Auto) 5.4 % Eosinophils (%) (Auto) 2.2 % Basophils (%) (Auto) 0.6 % Neutrophils # (Auto) 4.51 K/uL Lymphocytes # (Auto) 2.08 K/uL Monocytes # (Auto) 0.39 K/uL Eosinophils # (Auto) 0.16 K/uL Basophils # (Auto) 0.04 K/uL RDW Standard Deviation 51.2 fL RDW Coefficient of Variation 16.2 % Immature Granulocyte % (Auto) 0.3 % Immature Granulocyte # (Auto) 0.02 K/uL Sodium Level 142 mmol/L Potassium Level 4.3 mmol/L Chloride Level 112 mmol/L Carbon Dioxide Level 23 mmol/L Anion Gap 7.0 mmol/L Blood Urea Nitrogen 7 mg/dl Creatinine 0.56 mg/dl Est Creatinine Clear Calc Drug Dose 129.4 ml/min Estimated GFR () 145.0 Estimated GFR (Non- 125.1 BUN/Creatinine Ratio 12.9 Random Glucose 100 mg/dl Calcium Level 7.5 mg/dl Magnesium Level 2.1 mg/dl Total Bilirubin 0.3 mg/dl Direct Bilirubin < 0.1 mg/dl Aspartate Amino Transf (AST/SGOT) 12 U/L Alanine Aminotransferase (ALT/SGPT) 14 U/L Alkaline Phosphatase 44 U/L Total Protein 5.6 gm/dl Albumin 2.8 gm/dl Assessment & Plan 30 female with history of Anxiety/Depression, Opioid Dependence, Chronic Pain presenting with unresponsiveness. EPISODE OF UNRESPONSIVENESS, ALTERED MENTAL STATUS - likely from overdose of Xanax, Lyrica, Seroquel - CT head: 1. No acute intracranial abnormality. 2. Air within the soft tissues posterior to the orbits and maxillary sinuses. 3. Etiology of the air is uncertain. CT of the soft tissue neck is suggested as - electrolytes: unremarkable - ekg: no QT prolongation - poison control contacted- recommend supportive care - discussed case with Psych SVC- Ms Charity Howe recommend Klonopin 1mg TID today 1 dose this AM and provide patient with 2 doses for her flight today- to take at noon and in the evening recommend to continue Lyrica 200mg TID will provide patient with 1 dose for her flight today- to take at noon hold Haldol for now OVERDOSE ANXIETY/DEPRESSION - evaluated by Psych - no indication of inpatient mental health treatment at this time - patient competent to make medical decisions - patient set to go to [place] for Rehab patient and requesting me to update medical staff at Rehab for coordination of care AIR POCKETS IN THE MAXILLARY SINUS, ORBIT, NECK - CT head and Neck: 1. Punctate foci of air within the soft tissues throughout the soft tissue maxillofacial and soft tissue cervical neck regions. . 2. No evidence for abscess or collection 3. Diagnostic considerations are nonspecific although a potential origin from the posterior oral or hypopharynx must be considered. 4. This potentially would include a soft tissue laceration or other process. 5. The distribution of air pockets does not support anyone potential location as the origin. - consulted and discussed with ENT Service Dr. Arriola patient remains asymptomatic no further intervention at this time - patient advised to inform medical providers immediately if with throat pain, dysphagia/odynophagia, dyspnea, etc. BIBASILAR PARENCHYMAL INFILTRATIVE CHANGE admitted afebrile, but with WBC elevation of 16k CXR showed Minimal bibasilar parenchymal infiltrative change Received Zosyn an Levaquin in the ER hospital day 1 continue Levaquin and Augmentin BID hospital day 2 denies cough, shortness of breath no fever/chills remained afebrile, WBC normal now -- continue 1 more day of Augmentin BID monitor closely EKG CHANGES, Resolved - ekg: non specific t wave depression lead 3- resolved QTc within normal range - no cardiac symptoms HISTORY OF OPIOID ABUSE scheduled to go to [place] for Rehab DVT PX SCDs/ ambulation CODE STATUS Full code Disposition d/c home patient will go to Rehab in [place] today Current Inpatient Medications: Current Inpatient Medications Medications (Trade) Dose Ordered Sig/Bishop Route Start Time Stop Time Status Last Admin Dose Admin Ioversol (Optiray 320) 111 ml UD PRN IV 08/02/16 21:15 08/06/16 21:14 Miscellaneous (Iv Fluids Completed) 1 ea PRN PRN N/A 08/03/16 00:30 08/03/17 00:29 Sodium Chloride 1,000 ml @ 75 mls/hr [id number] IV 08/03/16 00:45 09/02/16 00:44 08/04/16 04:52 75 MLS/HR Promethazine HCl (Phenergan Tab) 25 mg Q6H PRN PO 08/03/16 01:00 09/02/16 00:59 Cholecalciferol (Vitamin D Tab) 2,000 inter.unit DAILY PO 08/03/16 09:00 09/02/16 08:59 08/03/16 08:27 2,000 INTER.UNIT Clonazepam (Klonopin Tab) 1 mg BID PO 08/03/16 21:00 09/02/16 20:59 08/03/16 21:06 1 MG Amoxicillin/ Clavulanate Potassium (Augmentin Tab) 875 mg BIDM PO 08/04/16 08:00 08/11/16 07:59 Pregabalin (Lyrica Cap) 200 mg BID PO 08/03/16 21:00 09/02/16 20:59 08/03/16 21:06 200 MG
[2016-08-04] MEDS ORDERED: KLN1 PO (08:36)
[2016-08-04] MEDS ORDERED: LYR100 PO (08:36)
[2016-08-04] MEDS ORDERED: AMOX1TAB43 PO (08:36)
--- NOTE | 2016-08-04 08:40 | Discharge Instructions ---
Discharge Instructions Date of Service Aug 04, 2016. Admission Reason for Admission: Overdose Discharge Discharge Diagnosis / Problem: Medication Overdose Discharge Goals Goal(s): Diagnostic testing, Therapeutic intervention Activity Recommendations Activity Limitations: as noted below (no heavy exertion until re-evaluated by primary physician) Lifting Limitations: until after follow-up appointment Exercise/Sports Limitations: until after follow-up appointment Driving or Machine Use: no driving until re-evaluated by primary physician . Instructions / Follow-Up Instructions / Follow-Up PLEASE REVIEW YOUR MEDICATION LIST AND FOLLOW INSTRUCTIONS STRICTLY DIRECTED. IF YOU HAVE DIZZINESS, WEAKNESS, SHORTNESS OF BREATH, NAUSEA/VOMITING, ABDOMINAL PAIN, COUGH, FEVER/CHILLS, TREMORS, SWEATING, SEEK MEDICAL ATTENTION IMMEDIATELY. ALWAYS KEEP HYDRATED AND EAT WELL. Current Hospital Diet Patient's current hospital diet: Regular Diet Discharge Diet Recommended Diet: Regular Diet Pending Studies Studies pending at discharge: yes List of pending studies: REPEAT BLOOD WORK C/O MEDICAL PROVIDER Medical Emergencies . Who to Call and When: Medical Emergencies: If at any time you feel your situation is an emergency, please call 911 immediately. . Non-Emergent Contact Non-Emergency issues call your: Primary Care Provider Call Non-Emergent contact if: you have a fever, you have any medication questions . . "Provider Documentation" section prepared by Huy Bailon. . VTE Core Measure Inpt VTE Proph given/why not?: SCD's
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
[2016-08-04 09:00] VITALS: BP 118/74; PULSE 70; TEMP 36.8; O2SAT 98
[2016-08-04] MEDS ORDERED: PREGABALIN 100 MG CAP PO SCH ×3 (09:00→21:00)
[2016-08-04] MEDS ORDERED: CLONAZEPAM 1 MG TAB PO SCH ×3 (09:00→21:00)
[2016-08-07 12:53] LABS: COD UR NEGATIVE NG/ML (CUTOFF=50); HYDROCOD UR NEGATIVE NG/ML (CUTOFF=50); HYDROMOR UR NEGATIVE NG/ML (CUTOFF=50); HYDROXYETHYLFLURAZEPAM CONF NEGATIVE NG/ML (CUTOFF=50); HYDROXYMIDAZOLAM NEGATIVE NG/ML (CUTOFF=50); HYDROXYTRIAZOLAM CONF NEGATIVE NG/ML (CUTOFF=50); MORPHINE UR NEGATIVE NG/ML (CUTOFF=50); NORHYDROCODONE CONF UR 158 NG/ML (CUTOFF=50); OXYMORPH UR NEGATIVE NG/ML (CUTOFF=50); TEMAZEPAM CONF NEGATIVE NG/ML (CUTOFF=50)
== END 2016-08-04 09:44 | disposition home or self-care (01) | DRG 918 ==
LOC: C.EDB 18:20 → C.MED 23:38 → EDBEDREQ 23:39 → ENRESERV 23:53 → C.MED 08-04 01:06
PROVIDERS: ADMIT Internal Medicine; ATTEND Internal Medicine
DX: T42.4X1A Poisoning by benzodiazepines, accidental (unintentional), initial encounter (principal); T42.6X1A Poisoning by other antiepileptic and sedative-hypnotic drugs, accidental (unintentional), initial encounter; T43.591A Poisoning by other antipsychotics and neuroleptics, accidental (unintentional), initial encounter; F17.210 Nicotine dependence, cigarettes, uncomplicated; G89.29 Other chronic pain; F43.10 Post-traumatic stress disorder, unspecified; F32.9 Major depressive disorder, single episode, unspecified; D64.9 Anemia, unspecified; J98.4 Other disorders of lung; R94.31 Abnormal electrocardiogram [ECG] [EKG]; R41.82 Altered mental status, unspecified; Z86.2 Personal history of diseases of the blood and blood-forming organs and certain disorders involving the immune mechanism; Z86.59 Personal history of other mental and behavioral disorders; Z87.820 Personal history of traumatic brain injury; Z79.899 Other long term (current) drug therapy